=== PATIENT | female | born 1975 | race Caucasian/White ===

== ENCOUNTER 2020-10-04 10:33 | Day surgery (SDC) | payer MEDICAID ==
[2020-09-27 17:07] LABS: BASOPHILS # (AUTO) 0.1 X10'3 (0-0.2); BASOPHILS % (AUTO) 0.7 % (0-1); EOSINOPHILS # (AUTO) 0.2 X10'3 (0-0.9); EOSINOPHILS % (AUTO) 2.5 % (0-6); LYMPHOCYTES # (AUTO) 1.9 X10'3 (1.1-4.8); LYMPHOCYTES % (AUTO) 21.4 % (21-51); MEAN CORPUSCULAR HEMOGLOBIN 28.1 PG (27.0-31.0); MEAN CORPUSCULAR VOLUME 85.2 FL (78-98); MEAN PLATELET VOLUME 9.4 FL (7.4-10.4); MONOCYTES # (AUTO) 0.6 X10'3 (0-0.9); NEUTROPHILS # (AUTO) 6.2 X10'3 (1.8-7.7); NEUTROPHILS % (AUTO) 68.4 % (42-75); PRE OP HEMATOCRIT 41.7 % (35.0-45.0); PRE OP HEMOGLOBIN 13.8 g/dL (12.0-16.0); PRE OP PLATELET COUNT 270 X10'3 (140-440); RED BLOOD COUNT 4.89 X10'6 (4.20-5.60); RED CELL DISTRIBUTION WIDTH 14.2 % (11.5-14.5)
[2020-09-27 17:11] LABS: ALBUMIN 3.9 G/DL (3.4-5.0); ALBUMIN/GLOBULIN RATIO 1.1 (1.1-1.5); ALKALINE PHOSPHATASE 46 IU/L (46-116); BLOOD UREA NITROGEN 14 MG/DL (7-18); BUN/CREATININE RATIO 14.4 (6.6-38.0); CHLORIDE 107 MMOL/L (99-107); CREATININE 0.97 MG/DL (0.40-0.90); PRE OP ALT 29 U/L (30-65); PRE OP ANION GAP 6 (8-16); PRE OP AST 25 U/L (10-37); PRE OP BILIRUB, TOTAL 0.4 MG/DL (0.0-1.0); PRE OP GLUCOSE 82 MG/DL (70-104); PRE OP SODIUM 142 MMOL/L (135-145); TOTAL CARBON DIOXIDE 28.8 MMOL/L (24-32); TOTAL PROTEIN 7.3 G/DL (6.4-8.2); eGFR 62 ML/MIN
[2020-09-27 17:14] LABS: PRE OP POTASSIUM 3.2 MMOL/L (3.4-5.1)
[2020-09-27 17:14] LABS: CLARITY,URINE CLEAR (Clear); COLOR,URINE YELLOW (Yellow); GLUCOSE, URINE NEGATIVE (Neg); KETONES,URINE NEGATIVE (Neg); LEUKOCYTE ESTERASE ,URINE NEGATIVE (Neg); NITRITES, URINE NEGATIVE (Neg); OCCULT BLOOD,URINE NEGATIVE (Neg); PH,URINE 6.5 (4.8-8.0); PROTEIN,URINE NEGATIVE (Neg); UROBILINOGEN,URINE 0.2 E.U/dL (0.2-1.0)
[2020-09-27 17:19] LABS: UA COLLECTION TYPE CLN CATCH MIDSTREAM
[2020-09-27 17:37] LABS: HCG SERUM QL NEGATIVE
[2020-10-04] VITALS (13 sets, daily range): BP systolic 103–119; BP diastolic 63–83
[~2020-10-04] VITALS: Ht 180.3 cm; Wt 91.3 kg
[~2020-10-04 10:33] MED LIST: ASCO500C18 PO; CARI3CAP PO; CHOL10006 PO; TOPI25TA49 PO; ceFOXitin 2GM-NS 100mL ADDvant 100 ML IV ONE; famotidine 20mg tablet PO ONE; ringers solution, lacted 1,000 ML IV SCH
[2020-10-04] MEDS ORDERED: LIDOcaine 1% (10mg/ml) 2ml vial ONE (11:22)
[2020-10-04] MEDS ORDERED: BUPIVAcaine 0.25% w/Epi /PF 30ml vial ONE (11:34)
[2020-10-04] MEDS ORDERED: BUPIVAcaine/PF 2.5 mg/ml (0.25%) 30ml vial ONE (11:34)
[2020-10-04 12:03] LABS: ISTAT CREATININE 0.9 mg/dL (0.6-1.1); ISTAT HGB 14.6 g/dl (12.0-16.0); ISTAT IONIZED CALCIUM 1.24 mmol/L (1.03-1.32); ISTAT K 3.9 mmol/L (3.5-5.1); POC BUN/CREATININE RATIO 11.1 (6.6-38.0)
[2020-10-04] MEDS ORDERED: sevoflurane 250ml liquid IH ONE (12:28)
[2020-10-04] MEDS ORDERED: midazolam 2 mg/2 ml injection ONE (12:33)
[2020-10-04] MEDS ORDERED: fentaNYL/PF 50MCG/1 ML 2ML syringe ONE ×2 (12:33→13:49)
[2020-10-04] MEDS ORDERED: morphine 4 MG/ML inj SYRINge IV PRN (13:00)
[2020-10-04] MEDS ORDERED: ondansetron/PF 4mg/2ml inj IV PRN ×2 (13:00→14:25)
[2020-10-04] MEDS ORDERED: morphine 2 MG/ML inj. syringe IV PRN (13:00)
[2020-10-04] MEDS ORDERED: ringers solution, lacted 1,000 ML IV SCH (13:00)
[2020-10-04] MEDS ORDERED: proCHLORperazine 10 MG/2 ml inj IV PRN (13:00)
[2020-10-04] MEDS ORDERED: meperidine/PF 25mg/ml syringe IV PRN ×3 (13:00)
[2020-10-04] MEDS ORDERED: acetaminophen 1,000mg/100ml IV 100 ML IV ONE (13:05)
[2020-10-04] MEDS ORDERED: dexamethasone sod phosphate 4mg/ml inj. ONE (13:05)
[2020-10-04] MEDS ORDERED: rocuronium 10mg/ml inj IV ONE (13:05)
[2020-10-04] MEDS ORDERED: propofol inj 20 ML IV ONE (13:05)
[2020-10-04] MEDS ORDERED: ondansetron/PF 4mg/2ml inj ONE (13:59)
[2020-10-04] MEDS ORDERED: metoclopramide 5 mg/ml inj IV PRN (14:25)
[2020-10-04] MEDS ORDERED: HYDROcodone/acetaminophen 5mg/325mg tablet PO PRN (14:25)
[2020-10-04] MEDS ORDERED: HYDROcodone/acetaminophen 10/325mg tab PO PRN (14:25)
[2020-10-04] MEDS ORDERED: ibuprofen 200mg tablet PO PRN (14:25)
[2020-10-04] MEDS ORDERED: neostigmine methylsulfate 1 MG/ML 10ml vial ONE (14:31)
[2020-10-04] MEDS ORDERED: glycopyrrolate 0.2mg/ml inj ONE (14:32)
--- NOTE | 2020-10-04 14:35 | NUR ---
Received from OR via BED , accompanied by Anesthesiologist DR BROWN and report given by Anesthesiolgist. PATIENT WAKING UP, C/O PAIN SEE EMAR, V/S WNL, NEUROVASCULAR CHECKS INTACT, 20G PIV LUE, SCD ON, DERMABONDED LAP SIGHTS OF ABDOMEN CDI WITH PERIPAD WITH SCANT DRAINAGE CDI.
--- NOTE | 2020-10-04 17:02 | NUR ---
PATIENT UNABLE TO VOID, 300CC IN BLADDER SCAN DR FIERRO AWARE AND ENC WALKING AND PO FLUIDS
--- NOTE | 2020-10-04 17:05 | NUR ---
PATIENT A&0X4, V/S WNL, NEUROVASCULAR CHECKS INTACT, 20G PIV LUE D/C, SCD OFF, BANDAIDS TO LAP SIGHTS OF ABDOMEN AND STERISTRIPS TO A THIRD WITH PERIPAD WITH SCANT DRAINAGE CDI. PATIENT WAS UNABLE TO VOID AND WAS STRAIGHT CATH W/ 500CC URINE DRAINED . PATIENT GIVEN CHOICE OF GOING HOME WITH F/C OR STRAIGHT CATH THEN D/C HOME WITH RISK OF NOT BEING ABLE TO VOID AFTERWARD AND HAVING TO COME BACK TO ER PER DR FIERRO. PATIENT CHOSE STRAIGHT CATH AND D/C HOME. RISKS AND BENIFITS GIVEN AND PATIENT VERBALIZED TO PROCEED. THIS WAS DONE WITHOUT COMPLICATIONS. I HAVE REVIEWED D/C INSTRUCTIONS WITH PATIENT AND FAMILY AND THEY HAVE VERBALIZED UNDERSTANDING. PATIENT D/C HOME WITH ALL BELONGINGS AND FAMILY GAVE TRANSPORT HOME.PATIENT OFFERED MASK BUT REFUSED TO WEAR IT AT UPON D/C.
== END 2020-10-04 17:05 | disposition home or self-care (01) ==
LOC: PAS 10:33
PROVIDERS: ATTEND Obstetrics & Gynecology Obstetrics
DX: N83.291 Other ovarian cyst, right side (principal); N83.202 Unspecified ovarian cyst, left side; N80.2 Endometriosis of fallopian tube; N80.1 Endometriosis of ovary; D25.9 Leiomyoma of uterus, unspecified; Z20.822 Contact with and (suspected) exposure to COVID-19; Z79.899 Other long term (current) drug therapy; D64.9 Anemia, unspecified; R10.2 Pelvic and perineal pain
CPT/HCPCS: 36415; 58661; 58662; 71046; 80047; 80053; 81003; 84703; 85025; 86885; 86900; 86901; 87635; 93005; C9803; J0131; J0694; J1100; J2001; J2250; J2405; J2704; J2710; J3010; J3490; J7120; A4618; A7000

== ENCOUNTER 2021-03-11 21:19 | Inpatient (IN) | payer MEDICAID ==
[~2021-03-11] VITALS: Ht 180.3 cm; Wt 90.0 kg
[~2021-03-11 21:19] MED LIST changes: -ceFOXitin 2GM-NS 100mL ADDvant 100 ML IV ONE; -famotidine 20mg tablet PO ONE; -ringers solution, lacted 1,000 ML IV SCH
[2021-03-11] MEDS ORDERED: ondansetron/PF 4mg/2ml inj IM ONE (21:55)
[2021-03-11] MEDS ORDERED: normal saline 1000ML IV soln IVB ONE (21:55)
[2021-03-11 22:21] LABS: BASOPHILS % (AUTO) 0.2 % (0-1); EOSINOPHILS % (AUTO) 0.2 % (0-6); HEMOGLOBIN 12.9 g/dl (12.0-16.0); LYMPHOCYTES # (AUTO) 0.1 X10'3 (1.1-4.8); MEAN CORPUSCULAR HEMOGLOBIN 26.9 PG (27.0-31.0); MEAN CORPUSCULAR VOLUME 81.5 FL (78-98); MEAN PLATELET VOLUME 8.5 FL (7.4-10.4); MONOCYTES # (AUTO) 0.1 X10'3 (0-0.9); MONOCYTES % (AUTO) 0.5 % (2-12); NEUTROPHILS # (AUTO) 14.1 X10'3 (1.8-7.7); NEUTROPHILS % (AUTO) 98.1 % (42-75); PLATELET COUNT 233 X10'3 (140-440); RED BLOOD COUNT 4.79 X10'6 (4.20-5.60); RED CELL DISTRIBUTION WIDTH 14.1 % (11.5-14.5); WHITE BLOOD COUNT 14.4 X10'3 (4.5-11.0)
[2021-03-11 22:22] LABS: URINE HCG NEGATIVE (NEG)
[2021-03-11 22:23] LABS: CLARITY,URINE SLIGHTLY CLOUDY (Clear); COLOR,URINE YELLOW (Yellow); GLUCOSE, URINE NEGATIVE (Neg); KETONES,URINE 15 mg/dl (Neg); LEUKOCYTE ESTERASE ,URINE TRACE (Neg); NITRITES, URINE NEGATIVE (Neg); OCCULT BLOOD,URINE TRACE-INTACT (Neg); PH,URINE 5.5 (4.8-8.0); PROTEIN,URINE 100 mg/dl (Neg); UROBILINOGEN,URINE 0.2 E.U/dL (0.2-1.0)
[2021-03-11 22:24] LABS: UA COLLECTION TYPE CLN CATCH MIDSTREAM
[2021-03-11 22:34] LABS: WBC,URINE 0-4 /HPF (0-4)
[2021-03-11 22:35] LABS: BACTERIA,URINE 2+ /HPF (Neg); MUCUS STRANDS MANY /LPF (Neg); SQUAMOUS EPITHELIAL CELL,UR MANY /LPF (FEW)
[2021-03-11 22:48] LABS: ALANINE AMINOTRANSFERASE 25 U/L (12-78); ALBUMIN 3.2 G/DL (3.4-5.0); ALBUMIN/GLOBULIN RATIO 0.8 (1.1-1.5); ALKALINE PHOSPHATASE 111 IU/L (46-116); ANION GAP 15 (8-16); ASPARTATE AMINO TRANSFERASE 20 U/L (10-37); BILIRUBIN,TOTAL 0.9 MG/DL (0.1-1.0); BLOOD UREA NITROGEN 17 MG/DL (7-18); BUN/CREATININE RATIO 14.7 (6.6-38.0); CALCIUM 8.6 MG/DL (8.5-10.1); CHLORIDE 103 MMOL/L (99-107); CREATININE 1.16 MG/DL (0.40-0.90); GLUCOSE 91 MG/DL (70-104); LIPASE 75 U/L (73-393); SODIUM 138 MMOL/L (135-145); TOTAL CARBON DIOXIDE 19.6 MMOL/L (24-32); TOTAL PROTEIN 7.3 G/DL (6.4-8.2); eGFR 50 ML/MIN
[2021-03-11] MEDS ORDERED: normal saline 1000ML IV soln IV ONE (22:50)
[2021-03-11] MEDS ORDERED: levoFLOXACIN-Levaquin 750MG/D5 150 ML IV ONE (22:50)
[2021-03-11] MEDS ORDERED: metroNIDAZOLE-Flagyl 500mg/NS 100 ML IV ONE (22:50)
[2021-03-11] MEDS ORDERED: potassium Cl 10 mEq/100mL bag IV ONE (23:00)
[2021-03-11] MEDS ORDERED: iohexol 300mg/ml 100ml inj. ONE (23:05)
[2021-03-12 01:30] LABS: MAGNESIUM 1.6 MG/DL (1.5-2.4)
[2021-03-12] MEDS ORDERED: potassium Cl 10 mEq/100mL bag IV ONE ×2 (03:40→05:30)
[2021-03-12] MEDS ORDERED: magnesium oxide 400mg tablet PO ONE (03:40)
--- NOTE | 2021-03-12 05:31 | NUR ---
PT HAD K OF 3.0 - REC'D 2 K-RIDERS, PER MD FIERRO GIVE ADDITIONAL 2 K-RIDERS AND RECHECK MORNING LABS. - LABS TIMED FOR 0900HRS
[2021-03-12 09:33] LABS: ALANINE AMINOTRANSFERASE 14 U/L (12-78); ALBUMIN 2.4 G/DL (3.4-5.0); ALBUMIN/GLOBULIN RATIO 0.7 (1.1-1.5); ALKALINE PHOSPHATASE 85 IU/L (46-116); ANION GAP 8 (8-16); ASPARTATE AMINO TRANSFERASE 15 U/L (10-37); BILIRUBIN,TOTAL 0.6 MG/DL (0.1-1.0); BLOOD UREA NITROGEN 11 MG/DL (7-18); BUN/CREATININE RATIO 11.1 (6.6-38.0); CALCIUM 7.5 MG/DL (8.5-10.1); CHLORIDE 108 MMOL/L (99-107); CREATININE 0.99 MG/DL (0.40-0.90); GLUCOSE 87 MG/DL (70-104); POTASSIUM 3.6 MMOL/L (3.5-5.1); SODIUM 141 MMOL/L (135-145); TOTAL CARBON DIOXIDE 24.9 MMOL/L (24-32); eGFR 60 ML/MIN
[2021-03-12 09:47] LABS: BASOPHILS % (AUTO) 0.2 % (0-1); EOSINOPHILS # (AUTO) 0.1 X10'3 (0-0.9); EOSINOPHILS % (AUTO) 0.4 % (0-6); HEMATOCRIT 33.9 % (35.0-45.0); HEMOGLOBIN 11.1 g/dl (12.0-16.0); LYMPHOCYTES # (AUTO) 0.5 X10'3 (1.1-4.8); LYMPHOCYTES % (AUTO) 2.6 % (21-51); MEAN CORPUSCULAR HEMOGLOBIN 26.9 PG (27.0-31.0); MEAN CORPUSCULAR HGB CONC 32.9 g/dL (33.0-36.5); MEAN CORPUSCULAR VOLUME 81.7 FL (78-98); MEAN PLATELET VOLUME 8.7 FL (7.4-10.4); MONOCYTES % (AUTO) 5.4 % (2-12); NEUTROPHILS # (AUTO) 16.2 X10'3 (1.8-7.7); NEUTROPHILS % (AUTO) 91.4 % (42-75); PLATELET COUNT 185 X10'3 (140-440); RED BLOOD COUNT 4.14 X10'6 (4.20-5.60); RED CELL DISTRIBUTION WIDTH 14.1 % (11.5-14.5); WHITE BLOOD COUNT 17.8 X10'3 (4.5-11.0)
[2021-03-12] MEDS ORDERED: potassium Cl 20 mEq SR tablet PO PRN ×2 (09:55)
[2021-03-12] MEDS ORDERED: magnesium hydroxide 30ml (MOM) UD suspension PO PRN (09:55)
[2021-03-12] MEDS ORDERED: HYDROmorphone inj. 0.5 MG/0.5 ML DISP.SYRIN IV PRN (09:55)
[2021-03-12] MEDS ORDERED: mag hydrox/Alum hydrox/simeth 30ml oral suspension PO PRN (09:55)
[2021-03-12] MEDS ORDERED: magnesium 2GM in 50ml NS 50 ML IV PRN (09:55)
[2021-03-12] MEDS ORDERED: acetaminophen 325mg tablet PO PRN (09:55)
[2021-03-12] MEDS ORDERED: HYDROcodone/acetaminophen 10/325mg tab PO PRN (09:55)
[2021-03-12] MEDS ORDERED: magnesium 4gm in 100ml NS 100 ML IV PRN (09:55)
[2021-03-12] MEDS ORDERED: HYDROcodone/acetaminophen 5mg/325mg tablet PO PRN (09:55)
[2021-03-12] MEDS ORDERED: potassium Cl 40MEQ/1/2NS 520ml 520 ML IV PRN ×2 (09:55)
[2021-03-12] MEDS: normal saline 1000ml 1,000 ML IV SCH ×2 (10:56→16:40)
[2021-03-12] MEDS: metroNIDAZOLE-Flagyl 750mg/NS 150 ML IV SCH ×3 (10:56→23:40)
[2021-03-12 13:00] VITALS: BP 100/58
[2021-03-12] MEDS: acetaminophen 325mg tablet PO PRN (14:59)
--- NOTE | 2021-03-12 18:24 | NUR ---
REPORT GIVEN TO TUCKER WILBURN. ALL QUESTIONS ANSWERED. PATIENT COMFORTABLE IN BED. SENT MEAL TRAY REQUEST DOWN TO DIETARY. MOM AT BEDSIDE
[2021-03-12 18:30] VITALS: BP 95/59
[2021-03-12] MEDS: enoxaparin 40mg/0.4ml syringe SQ SCH (19:35)
[2021-03-12] MEDS: topiramate 25mg tablet PO SCH (19:35)
[2021-03-12] MEDS: K and/or MAG REPLACEMENT MC SCH (19:36)
[2021-03-12] MEDS: CARIPRAZINE 1.5 MG CAPSULE PO SCH (20:57)
[2021-03-13] VITALS: BP 102/60
[2021-03-13] MEDS: normal saline 1000ml 1,000 ML IV SCH ×2 (05:30→16:58)
[2021-03-13] MEDS: acetaminophen 325mg tablet PO PRN ×3 (05:40→23:32)
[2021-03-13 06:01] LABS: ALANINE AMINOTRANSFERASE 15 U/L (12-78); ALBUMIN 2.2 G/DL (3.4-5.0); ALBUMIN/GLOBULIN RATIO 0.6 (1.1-1.5); ALKALINE PHOSPHATASE 88 IU/L (46-116); ANION GAP 10 (8-16); ASPARTATE AMINO TRANSFERASE 15 U/L (10-37); BILIRUBIN,TOTAL 0.4 MG/DL (0.1-1.0); BLOOD UREA NITROGEN 12 MG/DL (7-18); BUN/CREATININE RATIO 13.6 (6.6-38.0); CALCIUM 7.4 MG/DL (8.5-10.1); CHLORIDE 108 MMOL/L (99-107); CREATININE 0.88 MG/DL (0.40-0.90); GLUCOSE 83 MG/DL (70-104); POTASSIUM 3.5 MMOL/L (3.5-5.1); SODIUM 141 MMOL/L (135-145); TOTAL CARBON DIOXIDE 23.4 MMOL/L (24-32); TOTAL PROTEIN 5.6 G/DL (6.4-8.2); eGFR 69 ML/MIN
[2021-03-13 06:21] LABS: BASOPHILS # (AUTO) 0.1 X10'3 (0-0.2); BASOPHILS % (AUTO) 0.6 % (0-1); EOSINOPHILS # (AUTO) 0.1 X10'3 (0-0.9); EOSINOPHILS % (AUTO) 1.3 % (0-6); HEMATOCRIT 30.8 % (35.0-45.0); HEMOGLOBIN 10.3 g/dl (12.0-16.0); LYMPHOCYTES # (AUTO) 0.6 X10'3 (1.1-4.8); LYMPHOCYTES % (AUTO) 6.1 % (21-51); MEAN CORPUSCULAR HEMOGLOBIN 27.3 PG (27.0-31.0); MEAN CORPUSCULAR HGB CONC 33.6 g/dL (33.0-36.5); MEAN CORPUSCULAR VOLUME 81.3 FL (78-98); MEAN PLATELET VOLUME 9.3 FL (7.4-10.4); MONOCYTES # (AUTO) 0.6 X10'3 (0-0.9); MONOCYTES % (AUTO) 6.3 % (2-12); NEUTROPHILS # (AUTO) 8.3 X10'3 (1.8-7.7); NEUTROPHILS % (AUTO) 85.7 % (42-75); PLATELET COUNT 174 X10'3 (140-440); RED BLOOD COUNT 3.79 X10'6 (4.20-5.60); RED CELL DISTRIBUTION WIDTH 13.9 % (11.5-14.5); WHITE BLOOD COUNT 9.6 X10'3 (4.5-11.0)
--- NOTE | 2021-03-13 07:04 | NUR ---
Patient in room [facility]. I have received report from yovana morrison and had the opportunity to ask questions and assume patient care.
[2021-03-13 07:36] VITALS: BP 100/59
[2021-03-13] MEDS: levoFLOXACIN-Levaquin 750MG/D5 150 ML IV SCH (07:39)
[2021-03-13] MEDS: topiramate 25mg tablet PO SCH ×2 (07:42→20:20)
[2021-03-13] MEDS: ascorbic acid 500mg tablet PO SCH (07:43)
[2021-03-13] MEDS: cholecalciferol (vitamin D3) 1,000 unit (25mcg) tablet PO SCH (07:43)
[2021-03-13] MEDS: K and/or MAG REPLACEMENT MC SCH ×2 (08:00→20:00)
[2021-03-13] MEDS: ondansetron/PF 4mg/2ml inj IV PRN (09:15)
[2021-03-13] MEDS: metroNIDAZOLE-Flagyl 750mg/NS 150 ML IV SCH ×2 (09:51→16:58)
[2021-03-13 12:27] VITALS: BP 105/64
--- NOTE | 2021-03-13 13:29 | NUR ---
patient seen by DR carter diet advanced to clear liquid. tylenol given for headache,mother present will continue to monitor.
[2021-03-13 18:00] VITALS: BP 98/68
[2021-03-13] MEDS: CARIPRAZINE 1.5 MG CAPSULE PO SCH (20:20)
[2021-03-13] MEDS: lactobacillus rhamnosus 10,000 MMU CELLS/CAPSULE PO SCH (20:20)
[2021-03-13] MEDS: enoxaparin 40mg/0.4ml syringe SQ SCH (20:21)
--- NOTE | 2021-03-13 21:30 | NUR ---
Iv infiltrated in Left AC replaced with 22 in right hand. Call made to Dr medrano with regards diet. diet advanced to regular. patient tolerated well. up adlib in room minimal pain in head and abdomen 2/10. patient is on her period, mild flow reported. will continue to monitor.
[2021-03-14] VITALS: BP 101/61
[2021-03-14] MEDS: metroNIDAZOLE-Flagyl 750mg/NS 150 ML IV SCH ×3 (00:48→16:10)
[2021-03-14] MEDS: normal saline 1000ml 1,000 ML IV SCH ×3 (01:55→21:55)
[2021-03-14] MEDS: ondansetron/PF 4mg/2ml inj IV PRN ×3 (04:40→18:23)
--- NOTE | 2021-03-14 05:09 | NUR ---
PATIENT C/O NAUSEA VOMITED SMALL AMOUNT OF CLEAR FLUID, MEDICATED WITH ZOFRAN WITH EFFECT.
--- NOTE | 2021-03-14 05:52 | NUR ---
patient appears stable,, reports zofran was effective. Report given to Madeline WILBURN
[2021-03-14 06:01] LABS: ALANINE AMINOTRANSFERASE 18 U/L (12-78); ALBUMIN 2.5 G/DL (3.4-5.0); ALBUMIN/GLOBULIN RATIO 0.7 (1.1-1.5); ALKALINE PHOSPHATASE 93 IU/L (46-116); ANION GAP 10 (8-16); ASPARTATE AMINO TRANSFERASE 23 U/L (10-37); BASOPHILS % (AUTO) 0.6 % (0-1); BILIRUBIN,TOTAL 0.3 MG/DL (0.1-1.0); BLOOD UREA NITROGEN 7 MG/DL (7-18); CALCIUM 7.8 MG/DL (8.5-10.1); CHLORIDE 108 MMOL/L (99-107); CREATININE 0.88 MG/DL (0.40-0.90); EOSINOPHILS # (AUTO) 0.2 X10'3 (0-0.9); EOSINOPHILS % (AUTO) 2.5 % (0-6); GLUCOSE 100 MG/DL (70-104); HEMOGLOBIN 10.9 g/dl (12.0-16.0); LYMPHOCYTES # (AUTO) 0.9 X10'3 (1.1-4.8); LYMPHOCYTES % (AUTO) 11.2 % (21-51); MAGNESIUM 2.1 MG/DL (1.5-2.4); MEAN CORPUSCULAR HEMOGLOBIN 26.9 PG (27.0-31.0); MEAN CORPUSCULAR HGB CONC 33.1 g/dL (33.0-36.5); MEAN CORPUSCULAR VOLUME 81.1 FL (78-98); MEAN PLATELET VOLUME 9.5 FL (7.4-10.4); MONOCYTES # (AUTO) 0.6 X10'3 (0-0.9); MONOCYTES % (AUTO) 7.6 % (2-12); NEUTROPHILS # (AUTO) 6.1 X10'3 (1.8-7.7); NEUTROPHILS % (AUTO) 78.1 % (42-75); PLATELET COUNT 210 X10'3 (140-440); POTASSIUM 3.2 MMOL/L (3.5-5.1); RED BLOOD COUNT 4.08 X10'6 (4.20-5.60); RED CELL DISTRIBUTION WIDTH 14.2 % (11.5-14.5); SODIUM 140 MMOL/L (135-145); TOTAL CARBON DIOXIDE 21.7 MMOL/L (24-32); TOTAL PROTEIN 5.9 G/DL (6.4-8.2); WHITE BLOOD COUNT 7.9 X10'3 (4.5-11.0); eGFR 69 ML/MIN
[2021-03-14 07:00] VITALS: BP 106/67
[2021-03-14] MEDS: K and/or MAG REPLACEMENT MC SCH ×2 (08:00→20:00)
[2021-03-14] MEDS: cholecalciferol (vitamin D3) 1,000 unit (25mcg) tablet PO SCH (08:00)
[2021-03-14] MEDS: ascorbic acid 500mg tablet PO SCH (08:00)
[2021-03-14] MEDS ORDERED: METR500T PO (09:01)
[2021-03-14] MEDS ORDERED: LEVO500T89 PO ×2 (09:01)
[2021-03-14] MEDS: lactobacillus rhamnosus 10,000 MMU CELLS/CAPSULE PO SCH ×2 (09:17→21:06)
[2021-03-14] MEDS: topiramate 25mg tablet PO SCH ×2 (09:17→21:06)
--- NOTE | 2021-03-14 09:54 | NUR ---
PAGER ID: [phone] MESSAGE: Madeline Bustillos [phone] Re: Ismael please call re: K+3.2 and nausea Addendum: 03/14/21 at 1135 by Madeline Jones RN Received call back from Dr Bueno.. Is aware patient has not had a bowel movement since 03/12 which was small neg gas and hypo BS per Dr Bueno she does not want to give her any laxatives, Dr Bueno is also aware patient still nauseated and would like to have zofran for discharge. Received orders for Zofran ODT 4mg SL #[address] Bueno aware patient K+ 3.2 and I just started replacement IV and will be discharged after completion.
[2021-03-14] MEDS: levoFLOXACIN-Levaquin 750MG/D5 150 ML IV SCH (10:05)
[2021-03-14 11:00] VITALS: BP 105/68
[2021-03-14] MEDS ORDERED: ONDA4TAB12 PO (11:42)
--- NOTE | 2021-03-14 13:14 | NUR ---
Paged Barrel Turner
--- NOTE | 2021-03-14 13:20 | NUR ---
PAGER ID: [phone] MESSAGE: Madeline-Surg [phone] Re: [id number] Guevara Per Dr Wilburn patient not ready for discharge he ordered a pelvic Ultrasound
[2021-03-14] MEDS ORDERED: diatr meglu/diatrizoate 30ml oral sol.-(3 dose) bottle ONE ×2 (14:58→15:03)
--- NOTE | 2021-03-14 15:00 | NUR ---
Patient going down via wheelchair to CT scan S/L IV flushed well .
--- NOTE | 2021-03-14 15:12 | NUR ---
PAGER ID: [phone] MESSAGE: Madeline-Surg [phone] Ismael Goodman I cancel your discharge Dr Wilburn is doing a CT and Abd US Addendum: 03/14/21 at 1513 by Madeline Jones RN Received orders from Dr Bueno to cancel discharge.
[2021-03-14] MEDS ORDERED: iohexol 300mg/ml 100ml inj. ONE (15:37)
--- NOTE | 2021-03-14 17:19 | NUR ---
Called Dr Wilburn to advise that the CT results are up. Per Dr Wilburn go ahead and feed her tonight. Verified Regular Diet and Dr Wilburn said yes
--- NOTE | 2021-03-14 18:33 | NUR ---
Problems reprioritized. Patient report given, questions answered & plan of care reviewed with Carolee WILBURN.
[2021-03-14 19:00] VITALS: BP 110/69
[2021-03-14] MEDS: CARIPRAZINE 1.5 MG CAPSULE PO SCH (21:06)
[2021-03-14] MEDS: enoxaparin 40mg/0.4ml syringe SQ SCH (21:07)
[2021-03-15] VITALS: BP 97/63
[2021-03-15] MEDS: metroNIDAZOLE-Flagyl 750mg/NS 150 ML IV SCH ×4 (00:09→23:58)
[2021-03-15] MEDS: normal saline 1000ml 1,000 ML IV SCH ×2 (00:11→16:20)
[2021-03-15 05:59] LABS: EOSINOPHILS # (AUTO) 0.2 X10'3 (0-0.9); HEMATOCRIT 32.5 % (35.0-45.0); LYMPHOCYTES % (AUTO) 17.3 % (21-51); MONOCYTES # (AUTO) 0.5 X10'3 (0-0.9); NEUTROPHILS # (AUTO) 4.2 X10'3 (1.8-7.7)
[2021-03-15 06:02] LABS: BASOPHILS % (AUTO) 0.7 % (0-1); EOSINOPHILS % (AUTO) 2.6 % (0-6); HEMOGLOBIN 10.7 g/dl (12.0-16.0); MEAN CORPUSCULAR HEMOGLOBIN 27.1 PG (27.0-31.0); MEAN CORPUSCULAR VOLUME 82.2 FL (78-98); MEAN PLATELET VOLUME 9.9 FL (7.4-10.4); NEUTROPHILS % (AUTO) 70.4 % (42-75); PLATELET COUNT 201 X10'3 (140-440); RED BLOOD COUNT 3.95 X10'6 (4.20-5.60); RED CELL DISTRIBUTION WIDTH 14.2 % (11.5-14.5)
--- NOTE | 2021-03-15 06:36 | NUR ---
Problems reprioritized. Patient report given, questions answered & plan of care reviewed with Madeline WILBURN. Addendum: 03/15/21 at 0637 by Carolee Anderson RN Amended: Links added.
[2021-03-15 06:47] LABS: ALANINE AMINOTRANSFERASE 17 U/L (12-78); ALBUMIN 2.5 G/DL (3.4-5.0); ALBUMIN/GLOBULIN RATIO 0.8 (1.1-1.5); ALKALINE PHOSPHATASE 91 IU/L (46-116); ANION GAP 9 (8-16); ASPARTATE AMINO TRANSFERASE 23 U/L (10-37); BILIRUBIN,TOTAL 0.3 MG/DL (0.1-1.0); BLOOD UREA NITROGEN 5 MG/DL (7-18); BUN/CREATININE RATIO 6.3 (6.6-38.0); CALCIUM 8.1 MG/DL (8.5-10.1); CHLORIDE 110 MMOL/L (99-107); CREATININE 0.79 MG/DL (0.40-0.90); GLUCOSE 87 MG/DL (70-104); MAGNESIUM 2.2 MG/DL (1.5-2.4); POTASSIUM 3.5 MMOL/L (3.5-5.1); SODIUM 140 MMOL/L (135-145); TOTAL CARBON DIOXIDE 21.2 MMOL/L (24-32); TOTAL PROTEIN 5.7 G/DL (6.4-8.2); eGFR 78 ML/MIN
[2021-03-15 07:00] VITALS: BP 104/63
[2021-03-15] MEDS: lactobacillus rhamnosus 10,000 MMU CELLS/CAPSULE PO SCH ×2 (07:52→20:00)
[2021-03-15] MEDS: topiramate 25mg tablet PO SCH ×2 (07:52→20:00)
[2021-03-15] MEDS: ondansetron/PF 4mg/2ml inj IV PRN ×3 (07:52→21:04)
[2021-03-15] MEDS: ascorbic acid 500mg tablet PO SCH (08:00)
[2021-03-15] MEDS: cholecalciferol (vitamin D3) 1,000 unit (25mcg) tablet PO SCH (08:00)
[2021-03-15] MEDS: K and/or MAG REPLACEMENT MC SCH ×2 (08:00→20:00)
[2021-03-15 11:00] VITALS: BP 92/51
[2021-03-15] MEDS: levoFLOXACIN-Levaquin 750MG/D5 150 ML IV SCH (11:48)
--- NOTE | 2021-03-15 15:32 | NUR ---
Spoke to Raquel the organizational development director to see if we can get things patient is able to eat to help increase her nutrition.
--- NOTE | 2021-03-15 15:54 | NUR ---
Received TC from RN regarding pt with poor PO intake. TC to pt who reports nausea and states anti-emetic is helping. Food preference were obtained and d/w dietary, see below. RD discussed ONS options. Pt requested to trial meals with updated preferences then revisit the possibility of ONS if needed. Pt informed of how to reach out to RD for further preferences if needed. Information obtained was d/w patient's RN. Will continue to follow closely. Recommendations: 1) Continue regular diet; encourage PO intake 2) [place] food preferences: saltine crackers TID, yogurt BIDBD, strawberry banana smoothie BIDBD, cottage cheese and peaches WS, alternate tomato soup and chicken noodle soup WS 3) Monitor need for ONS, pt declined at this time 4) Routine bowel care 5) Weekly scaled weights Addendum: 03/15/21 at [address] Amended: Links added.
[2021-03-15] MEDS ORDERED: magnesium citrate 296ml oral solution PO ONE (17:40)
--- NOTE | 2021-03-15 18:14 | NUR ---
Problems reprioritized. Patient report given, questions answered & plan of care reviewed with Carolee WILBURN.
[2021-03-15 19:00] VITALS: BP 116/72
[2021-03-15] MEDS: CARIPRAZINE 1.5 MG CAPSULE PO SCH (20:45)
[2021-03-15] MEDS: enoxaparin 40mg/0.4ml syringe SQ SCH (20:51)
[2021-03-15] MEDS: diatr meglu/diatrizoate 30ml oral sol.-(3 dose) bottle PO SCH (21:53)
[2021-03-16] VITALS: BP 106/71
[2021-03-16] MEDS: normal saline 1000ml 1,000 ML IV SCH ×3 (04:28→23:55)
[2021-03-16 06:37] LABS: BASOPHILS # (AUTO) 0.1 X10'3 (0-0.2); BASOPHILS % (AUTO) 1.2 % (0-1); EOSINOPHILS # (AUTO) 0.2 X10'3 (0-0.9); EOSINOPHILS % (AUTO) 2.1 % (0-6); HEMATOCRIT 33.3 % (35.0-45.0); HEMOGLOBIN 11.1 g/dl (12.0-16.0); LYMPHOCYTES # (AUTO) 1.4 X10'3 (1.1-4.8); LYMPHOCYTES % (AUTO) 17.1 % (21-51); MEAN CORPUSCULAR HEMOGLOBIN 26.8 PG (27.0-31.0); MEAN CORPUSCULAR HGB CONC 33.3 g/dL (33.0-36.5); MEAN CORPUSCULAR VOLUME 80.6 FL (78-98); MEAN PLATELET VOLUME 9.6 FL (7.4-10.4); MONOCYTES # (AUTO) 0.7 X10'3 (0-0.9); NEUTROPHILS # (AUTO) 5.7 X10'3 (1.8-7.7); NEUTROPHILS % (AUTO) 70.6 % (42-75); PLATELET COUNT 259 X10'3 (140-440); RED BLOOD COUNT 4.14 X10'6 (4.20-5.60); WHITE BLOOD COUNT 8.1 X10'3 (4.5-11.0)
[2021-03-16 06:46] LABS: ALANINE AMINOTRANSFERASE 26 U/L (12-78); ALBUMIN 2.7 G/DL (3.4-5.0); ALBUMIN/GLOBULIN RATIO 0.8 (1.1-1.5); ALKALINE PHOSPHATASE 94 IU/L (46-116); ANION GAP 9 (8-16); ASPARTATE AMINO TRANSFERASE 39 U/L (10-37); BILIRUBIN,TOTAL 0.3 MG/DL (0.1-1.0); BLOOD UREA NITROGEN 3 MG/DL (7-18); BUN/CREATININE RATIO 3.8 (6.6-38.0); CALCIUM 7.8 MG/DL (8.5-10.1); CHLORIDE 109 MMOL/L (99-107); CREATININE 0.79 MG/DL (0.40-0.90); GLUCOSE 88 MG/DL (70-104); MAGNESIUM 2.2 MG/DL (1.5-2.4); POTASSIUM 3.3 MMOL/L (3.5-5.1); SODIUM 141 MMOL/L (135-145); TOTAL CARBON DIOXIDE 23.4 MMOL/L (24-32); eGFR 78 ML/MIN
--- NOTE | 2021-03-16 06:47 | NUR ---
Patient in room [facility]. I have received report from Carolee WILBURN and had the opportunity to ask questions and assume patient care.
[2021-03-16] MEDS: diatr meglu/diatrizoate 30ml oral sol.-(3 dose) bottle PO SCH ×2 (07:09→10:20)
[2021-03-16] MEDS: ondansetron/PF 4mg/2ml inj IV PRN ×2 (07:09→19:40)
[2021-03-16] MEDS: levoFLOXACIN-Levaquin 750MG/D5 150 ML IV SCH (07:10)
[2021-03-16] MEDS: topiramate 25mg tablet PO SCH ×2 (07:11→21:31)
[2021-03-16] MEDS: ascorbic acid 500mg tablet PO SCH (07:11)
[2021-03-16] MEDS: lactobacillus rhamnosus 10,000 MMU CELLS/CAPSULE PO SCH ×2 (07:11→21:31)
[2021-03-16] MEDS: cholecalciferol (vitamin D3) 1,000 unit (25mcg) tablet PO SCH (07:12)
[2021-03-16 08:00] VITALS: BP 108/77
[2021-03-16] MEDS: K and/or MAG REPLACEMENT MC SCH ×2 (08:00→20:00)
[2021-03-16] MEDS: metroNIDAZOLE-Flagyl 750mg/NS 150 ML IV SCH ×2 (09:01→16:27)
--- NOTE | 2021-03-16 09:35 | NUR ---
called CT no answer
[2021-03-16 12:05] VITALS: BP 104/70
--- NOTE | 2021-03-16 15:53 | NUR ---
Positive BC drawn on 03/12/21 @2207 from the left arm with Grram + Cocci in Pairs after 112 hours.
--- NOTE | 2021-03-16 15:56 | NUR ---
PAGER ID: [phone] MESSAGE: [id number] Flaquito Guevara called and she has Positive BC drawn on 03/12/21 @2207 from the left arm with Gram + Cocci in Pairs after 112 hours. Iqra [id number]
--- NOTE | 2021-03-16 18:28 | NUR ---
Problems reprioritized. Patient report given, questions answered & plan of care reviewed with Gardenia WILBURN.
--- NOTE | 2021-03-16 18:30 | NUR ---
Patient in room [facility]. I have received report from COSMO OATES and had the opportunity to ask questions and assume patient care. Addendum: 03/16/21 at 1830 by Gardenia Rowan RN Amended: Links added.
--- NOTE | 2021-03-16 19:30 | NUR ---
PT'S MOM AT BEDSIDE IS LEAVING TO PRINTING AND STAMPING SUPERVISOR HER AT THE [place]. HE IS A SURGEON AND DR GEE WILL SEE THEM WHEN THEY GET BACK TO DISCUSS PT'S PLAN OF CARE. PT NAUSEATED AND TEACHING DONE AND MEDICATED WITH ZOFRAN FOR THIS AND LOVENOX GIVEN. PT WHIFFED ALCOHOL WIPE TO ASSIST IN NAUSEA UNTIL ZOFRAN KICKS IN.
[2021-03-16] MEDS: enoxaparin 40mg/0.4ml syringe SQ SCH (19:43)
[2021-03-16 19:54] VITALS: BP 106/68
--- NOTE | 2021-03-16 20:15 | NUR ---
DR GEE IN TO TALK WITH PT AND HER PARENTS REGARDING PLAN ON CARE.
[2021-03-16] MEDS ORDERED: potassium Cl 20 mEq SR tablet PO PRN ×2 (21:15)
[2021-03-16] MEDS ORDERED: magnesium 4gm in 100ml NS 100 ML IV PRN (21:15)
[2021-03-16] MEDS ORDERED: potassium Cl 40MEQ/1/2NS 520ml 520 ML IV PRN (21:15)
[2021-03-16] MEDS ORDERED: magnesium Cl slow-release 64mg tablet PO PRN (21:15)
[2021-03-16] MEDS: CARIPRAZINE 1.5 MG CAPSULE PO SCH (21:31)
[2021-03-16] MEDS ORDERED: LORazepam 1 MG tablet PO ONE (23:55)
[2021-03-16] MEDS ORDERED: ondansetron/PF 4mg/2ml inj IV ONE (23:55)
--- NOTE | 2021-03-16 23:56 | NUR ---
DR BORRERO CALLED PT SITTING EDGE OF BED C/O NAUSEA AT THIS TIME. ORDERS RECEIVED SHE HAD ZOFRAN EARLIER BUT IT CAME BACK ON AFTER FOUR HOURS.
[2021-03-17] VITALS: BP 102/72
[2021-03-17] MEDS: metroNIDAZOLE-Flagyl 750mg/NS 150 ML IV SCH ×4 (00:06→23:03)
--- NOTE | 2021-03-17 01:35 | NUR ---
RESTING EYES CLOSED WITHOUT S&S OF DISTRESS AT THIS TIME.
--- NOTE | 2021-03-17 04:21 | NUR ---
RESTING APPEARS COMFORTABLE.
--- NOTE | 2021-03-17 06:07 | NUR ---
Problems reprioritized. Patient report given, questions answered & plan of care reviewed with KAM WILBURN. Addendum: 03/17/21 at 0607 by Gardenia Rowan RN Amended: Links added.
[2021-03-17 06:33] LABS: BASOPHILS # (AUTO) 0.1 X10'3 (0-0.2); EOSINOPHILS # (AUTO) 0.2 X10'3 (0-0.9); EOSINOPHILS % (AUTO) 3.4 % (0-6); HEMATOCRIT 31.1 % (35.0-45.0); HEMOGLOBIN 10.5 g/dl (12.0-16.0); LYMPHOCYTES # (AUTO) 1.5 X10'3 (1.1-4.8); LYMPHOCYTES % (AUTO) 25.6 % (21-51); MEAN CORPUSCULAR HEMOGLOBIN 26.9 PG (27.0-31.0); MEAN CORPUSCULAR HGB CONC 33.6 g/dL (33.0-36.5); MEAN CORPUSCULAR VOLUME 80.1 FL (78-98); MEAN PLATELET VOLUME 9.4 FL (7.4-10.4); MONOCYTES # (AUTO) 0.5 X10'3 (0-0.9); MONOCYTES % (AUTO) 8.9 % (2-12); NEUTROPHILS # (AUTO) 3.7 X10'3 (1.8-7.7); NEUTROPHILS % (AUTO) 61.1 % (42-75); PLATELET COUNT 251 X10'3 (140-440); RED BLOOD COUNT 3.88 X10'6 (4.20-5.60); RED CELL DISTRIBUTION WIDTH 14.1 % (11.5-14.5)
--- NOTE | 2021-03-17 06:44 | NUR ---
Patient in room [facility]. I have received report from NOC shift RN and had the opportunity to ask questions and assume patient care.
[2021-03-17 06:57] LABS: ALANINE AMINOTRANSFERASE 34 U/L (12-78); ALBUMIN 2.5 G/DL (3.4-5.0); ALBUMIN/GLOBULIN RATIO 0.8 (1.1-1.5); ALKALINE PHOSPHATASE 80 IU/L (46-116); ANION GAP 8 (8-16); ASPARTATE AMINO TRANSFERASE 50 U/L (10-37); BILIRUBIN,TOTAL 0.3 MG/DL (0.1-1.0); BLOOD UREA NITROGEN 4 MG/DL (7-18); BUN/CREATININE RATIO 4.8 (6.6-38.0); CALCIUM 7.6 MG/DL (8.5-10.1); CHLORIDE 111 MMOL/L (99-107); CREATININE 0.83 MG/DL (0.40-0.90); GLUCOSE 84 MG/DL (70-104); MAGNESIUM 2.2 MG/DL (1.5-2.4); POTASSIUM 3.6 MMOL/L (3.5-5.1); SODIUM 142 MMOL/L (135-145); TOTAL CARBON DIOXIDE 23.4 MMOL/L (24-32); TOTAL PROTEIN 5.5 G/DL (6.4-8.2); eGFR 74 ML/MIN
[2021-03-17 07:08] VITALS: BP 109/70
[2021-03-17] MEDS: K and/or MAG REPLACEMENT MC SCH ×3 (08:00→20:28)
[2021-03-17] MEDS: ascorbic acid 500mg tablet PO SCH (08:07)
[2021-03-17] MEDS: lactobacillus rhamnosus 10,000 MMU CELLS/CAPSULE PO SCH ×2 (08:07→20:17)
[2021-03-17] MEDS: cholecalciferol (vitamin D3) 1,000 unit (25mcg) tablet PO SCH (08:07)
[2021-03-17] MEDS: topiramate 25mg tablet PO SCH ×2 (08:07→20:17)
[2021-03-17] MEDS: normal saline 1000ml 1,000 ML IV SCH ×2 (08:08→20:19)
[2021-03-17] MEDS: levoFLOXACIN-Levaquin 750MG/D5 150 ML IV SCH (09:40)
[2021-03-17 11:54] VITALS: BP 101/71
--- NOTE | 2021-03-17 13:51 | NUR ---
Initial: Pt admitted w/ abdominal pain and nausea/vomiting prior to admission. Pt reports some vomiting 03/15-, but no N/V/D today. Pt NPO for procedure 03/16, but able to eat today. Observed pt about to eat lunch, reports she has a modest appetite. Food preferences already obtained and entered into diet order. LBM 03/17. No nutritional diagnosis at this time, Will continue to monitor PO trends. Recommendations: 1) Continue regular diet; encourage PO intake 2) [place] food preferences: saltine crackers TID, yogurt BIDBD, strawberry banana smoothie BIDBD, cottage cheese and peaches WS, alternate tomato soup and chicken noodle soup WS 3) Monitor need for ONS 4) Routine bowel care 5) Weekly scaled weights Addendum: 03/17/21 at [address] Amended: Links added.
[2021-03-17 19:20] VITALS: BP 104/69
[2021-03-17] MEDS: CARIPRAZINE 1.5 MG CAPSULE PO SCH (20:17)
[2021-03-17] MEDS: enoxaparin 40mg/0.4ml syringe SQ SCH (20:18)
[2021-03-18] VITALS: BP 100/65
--- NOTE | 2021-03-18 00:16 | NUR ---
Problems reprioritized. Patient report given, questions answered & plan of care reviewed with Anita WILBURN.
[2021-03-18] MEDS: ondansetron/PF 4mg/2ml inj IV PRN (02:19)
[2021-03-18] MEDS: normal saline 1000ml 1,000 ML IV SCH (05:57)
--- NOTE | 2021-03-18 06:30 | NUR ---
Problems reprioritized. Patient report given, questions answered & plan of care reviewed with CROW. Addendum: 03/18/21 at 0644 by Demar Barber RN Amended: Links added.
--- NOTE | 2021-03-18 06:30 | NUR ---
Patient in room [facility]. I have received report from Juarez WILBURN and had the opportunity to ask questions and assume patient care.
[2021-03-18 07:33] LABS: MAGNESIUM 2.2 MG/DL (1.5-2.4); POTASSIUM 3.7 MMOL/L (3.5-5.1)
[2021-03-18 08:00] VITALS: BP 119/65
[2021-03-18] MEDS: K and/or MAG REPLACEMENT MC SCH (08:00)
[2021-03-18] MEDS ORDERED: metroNIDAZOLE-Flagyl 500mg/NS 100 ML IV SCH (08:00)
[2021-03-18] MEDS: cholecalciferol (vitamin D3) 1,000 unit (25mcg) tablet PO SCH (08:54)
[2021-03-18] MEDS: levoFLOXACIN-Levaquin 750MG/D5 150 ML IV SCH (08:54)
[2021-03-18] MEDS: lactobacillus rhamnosus 10,000 MMU CELLS/CAPSULE PO SCH (08:54)
[2021-03-18] MEDS: topiramate 25mg tablet PO SCH (08:55)
[2021-03-18] MEDS: ascorbic acid 500mg tablet PO SCH (08:55)
[2021-03-18 11:00] VITALS: BP 116/74
[2021-03-18] MEDS ORDERED: LEVO750T46 PO (11:47)
--- NOTE | 2021-03-18 13:15 | NUR ---
Patient was educated on medications, follow up care, and worsening symptoms. Ondansetron was called into [facility] on [address]. Levofloxacin and Flagyl were electronically sent. Patient was educated on importance of finishing the full course of antibiotic. Patient had a follow up appointment with Dr. Coats a [employer] oncologist in [place] on March 21. IV was removed and canula was intact. Patient was wheeled down by a PCT.
== END 2021-03-18 13:15 | disposition home or self-care (01) | DRG 720 ==
LOC: ER 21:20 → ED HOLD 03-12 09:52 → SUR 3N 03-12 12:50
PROVIDERS: ADMIT Family Medicine; ATTEND Family Medicine
PROC: BW211ZZ Computerized Tomography (CT Scan) of Abdomen and Pelvis using Low Osmolar Contrast (ICD-10-PCS; principal; 2021-03-11)
PROC: BW211ZZ Computerized Tomography (CT Scan) of Abdomen and Pelvis using Low Osmolar Contrast (ICD-10-PCS; 2021-03-14)
DX: A41.9 Sepsis, unspecified organism (principal); K65.1 Peritoneal abscess; D64.9 Anemia, unspecified; E87.6 Hypokalemia; F31.9 Bipolar disorder, unspecified; N70.91 Salpingitis, unspecified; Z20.822 Contact with and (suspected) exposure to COVID-19; F41.9 Anxiety disorder, unspecified; M54.2 Cervicalgia; R97.1 Elevated cancer antigen 125 [CA 125]; Z82.62 Family history of osteoporosis; Z88.1 Allergy status to other antibiotic agents; Z79.899 Other long term (current) drug therapy
CPT/HCPCS: 36415; 74176; 74177; 76856; 80053; 81001; 81025; 83605; 83690; 83735; 84132; 84145; 84484; 85025; 86304; 87040; 87045; 87046; 87081; 87635; 89055; 93976; 96365; 96366; 96368; 96372; 99291; C9803; G0378; J1650; J1956; J2405; J3480; J3490; J7030; Q9963; Q9967

== ENCOUNTER 2021-05-02 05:36 | Inpatient (IN) | payer MEDICAID ==
[2021-04-25 16:26] LABS: BASOPHILS # (AUTO) 0.1 X10'3 (0-0.2); BASOPHILS % (AUTO) 0.8 % (0-1); EOSINOPHILS # (AUTO) 0.2 X10'3 (0-0.9); EOSINOPHILS % (AUTO) 3.6 % (0-6); LYMPHOCYTES # (AUTO) 1.5 X10'3 (1.1-4.8); LYMPHOCYTES % (AUTO) 21.5 % (21-51); MEAN CORPUSCULAR HEMOGLOBIN 27.2 PG (27.0-31.0); MEAN CORPUSCULAR HGB CONC 32.7 g/dL (33.0-36.5); MEAN CORPUSCULAR VOLUME 83.3 FL (78-98); MONOCYTES # (AUTO) 0.5 X10'3 (0-0.9); NEUTROPHILS # (AUTO) 4.6 X10'3 (1.8-7.7); NEUTROPHILS % (AUTO) 67.1 % (42-75); PRE OP HEMATOCRIT 38.8 % (35.0-45.0); PRE OP HEMOGLOBIN 12.7 g/dL (12.0-16.0); PRE OP PLATELET COUNT 245 X10'3 (140-440); RED BLOOD COUNT 4.66 X10'6 (4.20-5.60); RED CELL DISTRIBUTION WIDTH 16.1 % (11.5-14.5)
[2021-04-25 16:49] LABS: ALBUMIN 3.9 G/DL (3.4-5.0); ALBUMIN/GLOBULIN RATIO 1.1 (1.1-1.5); ALKALINE PHOSPHATASE 64 IU/L (46-116); BLOOD UREA NITROGEN 12 MG/DL (7-18); BUN/CREATININE RATIO 11.8 (6.6-38.0); CALCIUM 8.9 MG/DL (8.5-10.1); CHLORIDE 109 MMOL/L (99-107); CREATININE 1.02 MG/DL (0.40-0.90); PRE OP ALT 30 U/L (30-65); PRE OP ANION GAP 6 (8-16); PRE OP AST 24 U/L (10-37); PRE OP BILIRUB, TOTAL 0.5 MG/DL (0.0-1.0); PRE OP GLUCOSE 77 MG/DL (70-104); PRE OP POTASSIUM 3.7 MMOL/L (3.4-5.1); PRE OP SODIUM 140 MMOL/L (135-145); TOTAL PROTEIN 7.3 G/DL (6.4-8.2); eGFR 58 ML/MIN
[2021-04-25 16:55] LABS: CLARITY,URINE SLIGHTLY CLOUDY (Clear); COLOR,URINE STRAW (Yellow); UA COLLECTION TYPE CLN CATCH MIDSTREAM
[2021-04-25 16:56] LABS: GLUCOSE, URINE NEGATIVE (Neg); KETONES,URINE NEGATIVE (Neg); LEUKOCYTE ESTERASE ,URINE TRACE (Neg); NITRITES, URINE NEGATIVE (Neg); OCCULT BLOOD,URINE NEGATIVE (Neg); PROTEIN,URINE NEGATIVE (Neg); UROBILINOGEN,URINE 0.2 E.U/dL (0.2-1.0)
[2021-04-25 16:57] LABS: HCG SERUM QL NEGATIVE
[2021-04-25 17:23] LABS: SQUAMOUS EPITHELIAL CELL,UR FEW /LPF (FEW)
[2021-04-25 17:24] LABS: BACTERIA,URINE FEW /HPF (Neg); MUCUS STRANDS FEW /LPF (Neg); RBC,URINE 0-2 /HPF (0-2); WBC,URINE 0-4 /HPF (0-4)
[2021-05-02] VITALS (20 sets, daily range): BP systolic 103–134; BP diastolic 66–79
[~2021-05-02] VITALS: Ht 180.3 cm; Wt 91.0 kg
[~2021-05-02 05:36] MED LIST changes: +LACT1CAP75 PO; +ceFOXitin 2GM-NS 100mL ADDvant 100 ML IV ONE; +famotidine 20mg tablet PO ONE; +ringers solution, lacted 1,000 ML IV SCH
[2021-05-02] MEDS ORDERED: epiNEPHrine 1 mg/ml inj ONE (06:57)
[2021-05-02] MEDS ORDERED: BUPIVAcaine/PF 2.5mg/ml (0.25%) 10ml vial ONE ×3 (06:58→07:19)
[2021-05-02] MEDS ORDERED: vasoPRESSIN 20 units/ml inj. ONE (06:58)
[2021-05-02] MEDS ORDERED: sevoflurane 250ml liquid IH ONE (07:15)
[2021-05-02] MEDS ORDERED: BUPIVACAINE liposomal/PF 13.3 MG/ML vial IM ONE ×2 (07:16→07:19)
[2021-05-02] MEDS ORDERED: midazolam 1 mg/ML 2ml injection ONE (07:19)
[2021-05-02] MEDS ORDERED: fentaNYL /PF 50mcg/ml 5ml ampule ONE (07:20)
[2021-05-02] MEDS ORDERED: propofol inj 20 ML IV ONE (07:39)
[2021-05-02] MEDS ORDERED: rocuronium 10mg/ml inj IV ONE (07:39)
[2021-05-02] MEDS ORDERED: LIDOcaine 2% (20mg/ml) 5ml vial ONE (07:39)
[2021-05-02] MEDS ORDERED: ringers solution, lacted 1,000 ML IV SCH (08:15)
[2021-05-02] MEDS ORDERED: proCHLORperazine 10 MG/2 ml inj IV PRN (08:15)
[2021-05-02] MEDS ORDERED: meperidine/PF 25mg/ml syringe IV PRN ×3 (08:15)
[2021-05-02] MEDS ORDERED: morphine 4 MG/ML inj SYRINge IV PRN (08:15)
[2021-05-02] MEDS ORDERED: morphine 2 MG/ML inj. syringe IV PRN (08:15)
[2021-05-02] MEDS ORDERED: ondansetron/PF 4mg/2ml inj IV PRN ×2 (08:15→09:20)
[2021-05-02] MEDS ORDERED: ondansetron/PF 4mg/2ml inj ONE (08:18)
[2021-05-02] MEDS ORDERED: glycopyrrolate 0.2mg/ml inj ONE (08:18)
[2021-05-02] MEDS ORDERED: dexamethasone sod phosphate 4mg/ml inj. ONE (08:18)
[2021-05-02] MEDS ORDERED: acetaminophen 1,000mg/100ml IV 100 ML IV ONE (08:18)
[2021-05-02] MEDS ORDERED: neostigmine methylsulfate 1 MG/ML 10ml vial ONE (08:18)
[2021-05-02] MEDS ORDERED: metoclopramide 5 mg/ml inj IV PRN (09:20)
[2021-05-02] MEDS ORDERED: HYDROcodone/acetaminophen 10/325mg tab PO PRN ×2 (09:20)
[2021-05-02] MEDS ORDERED: estradiol 0.1mg patch.TDWK TD SCH (09:20)
[2021-05-02] MEDS ORDERED: magnesium hydroxide 30ml (MOM) UD suspension PO PRN (09:20)
[2021-05-02] MEDS ORDERED: diphenhydrAMINE 50 mg/ml inj IV PRN (09:20)
[2021-05-02] MEDS: ringers solution, lacted 1,000 ML IV SCH ×3 (09:20→21:23)
[2021-05-02] MEDS ORDERED: temazepam 15mg capsule PO PRN (09:20)
[2021-05-02] MEDS ORDERED: normal saline 500ml IV soln 500 ML IV PRN (09:20)
[2021-05-02] MEDS ORDERED: LORazepam 2 mg/ml vial IV PRN (09:20)
--- NOTE | 2021-05-02 09:23 | NUR ---
Received from OR via SURGICAL BED , accompanied by Anesthesiologist MARITZA and report given by Anesthesiolgist. PATIENT WITH 20G PIV IN LEFT HAND RUNNING LR AT 100. LOW LEFT TO RIGHT INCISION WITH DERMABOND PRESENT. NO DRAINAGE.SCDS DONNED. Addendum: 05/02/21 at 0939 by Syd Baez RN, RN Amended: Links added.
--- NOTE | 2021-05-02 11:03 | NUR ---
Received report from Syd in Recovery, awaiting arrival.
--- NOTE | 2021-05-02 11:03 | NUR ---
Report called to receiving nurse. Transferred via SURGICAL BED WITH ONE BAG OF Belongings . Special Issues communicated to receiving nurse ERNESTO Dhillon RN WAS PRESENT AT BEDSIDE TO TAKE CARE OF PATIENT. VSS ONE BAG OF BELONGINGS PRESENT AND GIVEN TO RN. TRANSFER OF CARE PERFORMED. Addendum: 05/02/21 at 1130 by Syd Baez RN RN Amended: Links added.
--- NOTE | 2021-05-02 11:32 | NUR ---
ADDENDUM. DEMEROL 25 MG ADMINISTERD AFTER SCANNING. MED VIAL PLACED IN RED BIN/SHARPS. CAME BACK TO COMPUTER TO FIND THAT AFTER ATTEMPTING TO SAVE THE "EXIT AND CLOSE" SCREEN APPEARED AND WOULD NOT ALLOW ME TO SAVE THIS ADMINISTRATION. COSMO OROZCO AWARE PATIENT HAS HAD DEMEROL AT APPROXIMATELY 1110 AM. Addendum: 05/02/21 at 1134 by Syd Adams - COSMO WILBURN Amended: Links added.
[2021-05-02] MEDS: simethicone 80mg chew tab PO SCH ×2 (13:00→17:55)
[2021-05-02] MEDS: topiramate 25mg tablet PO SCH (20:04)
[2021-05-02] MEDS: docusate sod 100mg capsule PO SCH (20:04)
[2021-05-02] MEDS ORDERED: CARIPRAZINE 3 MG PO SCH (21:00)
[2021-05-03] VITALS: BP 109/59
[2021-05-03] MEDS: ketorolac trometh. 30mg/ml inj. IV PRN ×2 (00:24→09:05)
--- NOTE | 2021-05-03 05:48 | NUR ---
DC'd patient's valle. Patient handled well. Removed 10 mls of fluid from balloon.
[2021-05-03 06:45] LABS: BASOPHILS # (AUTO) 0.1 X10'3 (0-0.2); BASOPHILS % (AUTO) 0.6 % (0-1); EOSINOPHILS % (AUTO) 0.4 % (0-6); HEMATOCRIT 35.5 % (35.0-45.0); HEMOGLOBIN 11.6 g/dl (12.0-16.0); LYMPHOCYTES # (AUTO) 0.9 X10'3 (1.1-4.8); LYMPHOCYTES % (AUTO) 7.6 % (21-51); MEAN CORPUSCULAR HEMOGLOBIN 26.9 PG (27.0-31.0); MEAN CORPUSCULAR HGB CONC 32.6 g/dL (33.0-36.5); MEAN CORPUSCULAR VOLUME 82.3 FL (78-98); MEAN PLATELET VOLUME 9.4 FL (7.4-10.4); MONOCYTES # (AUTO) 0.8 X10'3 (0-0.9); MONOCYTES % (AUTO) 7.4 % (2-12); NEUTROPHILS # (AUTO) 9.4 X10'3 (1.8-7.7); PLATELET COUNT 235 X10'3 (140-440); RED BLOOD COUNT 4.31 X10'6 (4.20-5.60); RED CELL DISTRIBUTION WIDTH 16.3 % (11.5-14.5); WHITE BLOOD COUNT 11.2 X10'3 (4.5-11.0)
--- NOTE | 2021-05-03 06:57 | NUR ---
Problems reprioritized. Patient report given, questions answered & plan of care reviewed with COSMO Allen.
[2021-05-03 07:00] VITALS: BP 109/71
[2021-05-03 07:11] LABS: ANION GAP 9 (8-16); BLOOD UREA NITROGEN 9 MG/DL (7-18); BUN/CREATININE RATIO 10.3 (6.6-38.0); CALCIUM 8.1 MG/DL (8.5-10.1); CHLORIDE 109 MMOL/L (99-107); CREATININE 0.87 MG/DL (0.40-0.90); GLUCOSE 98 MG/DL (70-104); POTASSIUM 3.5 MMOL/L (3.5-5.1); SODIUM 141 MMOL/L (135-145); TOTAL CARBON DIOXIDE 23.3 MMOL/L (24-32); eGFR 70 ML/MIN
[2021-05-03] MEDS ORDERED: ascorbic acid 500mg tablet PO SCH (08:00)
[2021-05-03] MEDS ORDERED: cholecalciferol (vitamin D3) 1,000 unit (25mcg) tablet PO SCH (08:00)
[2021-05-03] MEDS ORDERED: enoxaparin 40mg/0.4ml syringe SQ SCH (08:00)
[2021-05-03] MEDS ORDERED: lactobacillus rhamnosus 10,000 MMU CELLS/CAPSULE PO SCH (08:00)
[2021-05-03] MEDS: ringers solution, lacted 1,000 ML IV SCH (08:53)
[2021-05-03] MEDS: simethicone 80mg chew tab PO SCH ×2 (08:54→13:34)
[2021-05-03] MEDS: topiramate 25mg tablet PO SCH (08:55)
[2021-05-03] MEDS: docusate sod 100mg capsule PO SCH (08:55)
[2021-05-03 11:00] VITALS: BP 105/68
--- NOTE | 2021-05-03 15:20 | NUR ---
Discharge patient home, discharge instruction given to patient. Patient verbalized understanding of all instruction given to patient. Peripheral IV catheter removed, tip intact. Instructed patient to ensure she has all her belongings with her before leaving the hospital. Patient's home meds that was stored in the pharmacy was returned to patient.
== END 2021-05-03 15:24 | disposition home or self-care (01) | DRG 519 ==
LOC: UNDOADMIN 05:36 → PAS IN 05:36 → SUR 3N 11:13 → PAS IN 11:13
PROVIDERS: ADMIT Obstetrics & Gynecology Obstetrics; ATTEND Obstetrics & Gynecology Obstetrics
PROC: 0UT90ZZ Resection of Uterus, Open Approach (ICD-10-PCS; 2021-05-02)
PROC: 0UT20ZZ Resection of Bilateral Ovaries, Open Approach (ICD-10-PCS; 2021-05-02)
PROC: 3E0T3BZ Introduction of Anesthetic Agent into Peripheral Nerves and Plexi, Percutaneous Approach (ICD-10-PCS; 2021-05-02)
PROC: 3E0T33Z Introduction of Anti-inflammatory into Peripheral Nerves and Plexi, Percutaneous Approach (ICD-10-PCS; 2021-05-02)
PROC: 0UT70ZZ Resection of Bilateral Fallopian Tubes, Open Approach (ICD-10-PCS; principal; 2021-05-02 07:15)
DX: D25.9 Leiomyoma of uterus, unspecified (principal); E66.9 Obesity, unspecified; F32.9 Major depressive disorder, single episode, unspecified; R19.00 Intra-abdominal and pelvic swelling, mass and lump, unspecified site; G89.18 Other acute postprocedural pain; G89.29 Other chronic pain; F41.9 Anxiety disorder, unspecified; Z88.1 Allergy status to other antibiotic agents; Z68.28 Body mass index [BMI] 28.0-28.9, adult
CPT/HCPCS: 36415; 80048; 80053; 81001; 82948; 84703; 85025; 86885; 86900; 86901; 87081; 87088; 93005; A4618; A7000; C1758; C9290; G0378; J0131; J0171; J0694; J1100; J1650; J1885; J2001; J2250; J2405; J2704; J2710; J2765; J3010; J3490; J7120; U0003; U0005